=== PATIENT | male | born 1955 | race Caucasian/White ===

== ENCOUNTER 2019-01-21 08:53 | Emergency (ER) | payer BC ==
[2019-01-21 09:00] VITALS: BMI 25.0
--- NOTE | 2019-01-21 09:24 | PDOC ---
History of Present Illness - General Chief Complaint: Lightheaded Stated Complaint: ABD PAIN/ DIZZNESS Time Seen by Provider: 01/21/19 09:22 - History of Present Illness Initial Comments: 01/21/19 10:12 63 year old man with a history of L inguinal hernia repair 2 weeks ago who presents with weakness and nausea that started this AM. The patient has had constipation and has been on laxatives for the past weeks. He reports that he has had loose stools without changes in color. He denies chest pain, shortness of breath. He reports prior abdominal pain in the past 2 weeks but not currently. He has no other complaints aside from an ongoing cough ROS GENERAL/CONSTITUTIONAL: No fever or chills. + weakness. CARDIOVASCULAR: No chest pain or shortness of breath RESPIRATORY: No cough, wheezing, or hemoptysis. GASTROINTESTINAL: + nausea, No vomiting + diarrhea Want Ad Clerk constipation. GENITOURINARY: No dysuria, frequency, or change in urination. MUSCULOSKELETAL: No joint or muscle swelling or pain. No neck or back pain. SKIN: No rash PE GENERAL: Awake, alert, and fully oriented, in no acute distress HEAD: No signs of trauma, normocephalic, atraumatic EYES: EOMI, sclera anicteric, conjunctiva clear ENT: oropharynx clear without exudates. Moist mucosa NECK: Normal ROM, supple LUNGS: No distress, speaks full sentences, clear to auscultation bilaterally HEART: Regular rate and rhythm, normal S1 and S2, no murmurs, rubs or gallops, peripheral pulses normal and equal bilaterally. ABDOMEN: Soft, nontender, slightly hyperactive bowel sounds. No guarding, no rebound. No masses EXTREMITIES : Normal inspection, Normal range of motion, no edema. No clubbing or cyanosis. NEUROLOGICAL: Cranial nerves II through XII grossly intact. Normal speech, no focal sensorimotor deficits SKIN: Warm, Dry, normal turgor, no rashes or lesions noted MDM DDX including but not limited to: electrolyte abnormality r/o infectious r/o acs ED Course: cxr with no acute pathology as read by this administrative underwriter labs wnl will give another liter ns ekg: nsr at 60bpm, trop neg on reassessment, pt feels improved willl follow up with pcp tmrw or friday strict return precatuions provided recommended plnty of fluids and po intake po trial successful d/c with pcp f/u Ansley Thomas, PGY2 Emergency Medicine Past History - Past Medical History Allergies/Adverse Reactions: Allergies Allergy/AdvReac Type Severity Reaction Status Date / Time oxycodone Allergy Verified 01/21/19 09:00 Home Medications: Ambulatory Orders NK [No Known Home Medication] 01/21/19 - Psycho Social/Smoking Cessation Hx Smoking History: Never smoked Have you smoked in the past 12 months: No Information on smoking cessation initiated: No Hx Alcohol Use: No Drug/Substance Use Hx: No *Physical Exam - Vital Signs Last Vital Signs Temp Pulse Resp BP Pulse Ox 97.8 F 60 16 125/59 L 99 01/21/19 08:57 01/21/19 08:57 01/21/19 08:57 01/21/19 08:57 01/21/19 08:57 ED Treatment Course - LABORATORY CBC & Chemistry Diagram: 01/21/19 09:30 01/21/19 09:30 Discharge - Discharge Information Problems reviewed: Yes Clinical Impression/Diagnosis: Dehydration Condition: Stable Disposition: HOME - Admission No - Follow up/Referral Referrals: Antelmo Marks [Primary Care Provider] - - Patient Discharge Instructions Patient Printed Discharge Instructions: DI for Dehydration -- Adult, DI for Nausea -- Adult Additional Instructions: You were seen in the ER for weakness and nausea. Your labwork and imaging were unremarkable and you had improvement of symptoms after fluids You are advised to follow up with your Family Doctor within 1 week Use laxatives as prescribed and do not over dose yourself Drink plenty of fluids and maintain a regular diet. Return to the ED if you have worsening abdominal pain, nausea, vomiting, blood in the stool, fevers or any other concerning symptoms. - Post Discharge Activity
[2019-01-21] MEDS ORDERED: SODIUM CHLORIDE 1,000 ML IV SCH ×2 (09:30→10:45)
[2019-01-21 09:53] LABS: BASO % 0.5 % (0-2.0); EOS % 3.2 % (0-4.5); HEMATOCRIT 41.5 % (35.4-49); HEMOGLOBIN 14.6 GM/dL (11.7-16.9); LYMPH % 13.8 % (8-40); MCH 29.2 pg (25.7-33.7); MCHC 35.1 g/dl (32.0-35.9); MEAN CELL VOLUME 83.2 fl (80-96); MEAN PLT VOLUME 7.7 fl (7.5-11.1); MONO % 7.2 % (3.8-10.2); NEUT % 75.3 % (42.8-82.8); PLATELET COUNT 183 K/MM3 (134-434); RBC 4.99 M/mm3 (4.00-5.60); RDW 12.5 % (11.9-15.9); WHITE BLOOD COUNT 5.3 K/mm3 (4.0-10.0)
[2019-01-21] MEDS ORDERED: ONDANSETRON 4 MG/2 ML VIAL IVPUSH ONE (10:11)
[2019-01-21 10:12] LABS: INR 1.21 (0.83-1.09); PROTHROMBIN TIME (PATIENT) 14.3 SEC (9.7-13.0)
[2019-01-21 10:14] LABS: ACTIVATED PTT 32.8 SECONDS (25.2-36.5)
[2019-01-21] MEDS ORDERED: ONDANSETRON 4 MG/2 ML VIAL ONE (10:14)
[2019-01-21 10:23] LABS: ALBUMIN 3.8 g/dl (3.4-5.0); ALK PHOS 82 U/L (45-117); ANION GAP 6 MMOL/L (8-16); BILIRUBIN,TOTAL 0.5 mg/dL (0.2-1); BLOOD UREA NITROGEN 12.9 mg/dL (7-18); CHLORIDE 104 mmol/L (98-107); CO2 30 mmol/L (21-32); CREATININE 0.9 mg/dL (0.55-1.3); GLUCOSE,RANDOM 102 mg/dL (74-106); SGOT/AST 12 U/L (15-37); SGPT/ALT 18 U/L (13-61); SODIUM 139 mmol/L (136-145)
--- NOTE | 2019-01-21 10:56 | PDOC ---
Documentation entered by Katty Lomas SCRIBE, acting as scribe for Mario Bartlett MD. Mario Bartlett MD: This documentation has been prepared by the Cesilia baker Nirvannie, SCRIBE, under my direction and personally reviewed by me in its entirety. I confirm that the documentation accurately reflects all work, treatment, procedures, and medical decision making performed by me. Attending Attestation - Resident Resident Name: Ansley Thomas - ED Attending Attestation I have performed the following: I have examined & evaluated the patient, The case was reviewed & discussed with the resident, I agree w/resident's findings & plan, Exceptions are as noted - HPI HPI: 01/21/19 10:56 63 M with h/o recent L inguinal hernia surgery 2 weeks ago, presenting to ED with lightheadedness and diarrhea. Pt states that he has been having irregular bowel movements since his surgery. Reports initial constipation but has been taking milk of magnesia and colace daily, which has led to profuse watery diarrhea. Pt denies any abdominal pain. Denies N/V. Denies F/C. Now states he feels very weak and lightheaded. - Physicial Exam PE: 01/21/19 10:57 "GENERAL: Awake, alert, and fully oriented, in no acute distress. HEAD: No signs of trauma EYES: PERRLA, EOMI, sclera anicteric, conjunctiva clear ENT: Auricles normal inspection, hearing grossly normal, nares patent, oropharynx clear without exudates. Moist mucosa NECK: Nontender, no stepoffs, Normal ROM, supple, no lymphadenopathy, JVD, or masses LUNGS: Breath sounds equal, clear to auscultation bilaterally. No wheezes, and no crackles HEART: Regular rate and rhythm, normal S1 and S2, no murmurs, rubs or gallops ABDOMEN: + L inguinal surgical incision healing well, Soft, nontender, normoactive bowel sounds. No guarding, no rebound. No masses EXTREMITIES: Normal range of motion, no edema. No clubbing or cyanosis. No cords, erythema, or tenderness NEUROLOGICAL: Cranial nerves II through XII intact. 5/5 strength and sensation in all extremities, Normal speech, normal gait, normal cerebellar function SKIN: Warm, Dry, normal turgor, no rashes or lesions noted. - Medical Decision Making 01/21/19 10:58 63 M with lightheadedness and diarrhea. Likely dehydrated. Pt with benign abdominal exam, low suspicion for post-op infection or complication. - Labs - IVF Labs wnl Pt reassessed af ter fluids, now feels significantly better. Pt tolerating PO, ambulatory in ED with steady gait. Pt is well appearing, with normal vitals. Clinically stable for DC at this time. I discussed the physical exam findings, ancillary test results and final diagnoses with the patient. I answered all of the patient's questions. The patient was satisfied with the care received and felt comfortable with the discharge plan and treatment plan. The patient agrees to follow up with the primary care physician within 24-72 hours.
[2019-01-21 11:04] LABS: URINE APPEARANCE CLOUDY; URINE BILIRUBIN NEGATIVE (NEGATIVE); URINE COLOR YELLOW; URINE GLUCOSE (UA) NEGATIVE (NEGATIVE); URINE KETONE NEGATIVE (NEGATIVE); URINE LEUK ESTERASE NEGATIVE (NEGATIVE); URINE NITRITE NEGATIVE (NEGATIVE); URINE PROTEIN NEGATIVE (NEGATIVE); URINE UROBILINOGEN 0.2 mg/dL (0.2-1.0)
[2019-01-21 12:37] VITALS: BP 120/78; PULSE 64; TEMP 98.7
--- NOTE | 2019-01-22 13:53 | EKG ---
Test Reason : Blood Pressure : / mmHG Vent. Rate : 060 BPM Atrial Rate : 060 BPM P-R Int : 178 ms QRS Dur : 100 ms QT Int : 422 ms P-R-T Axes : 063 068 080 degrees QTc Int : 422 ms NORMAL SINUS RHYTHM NON-SPECIFIC INTRA-VENTRICULAR CONDUCTION DELAY WHEN COMPARED WITH ECG OF 13-OCT-2004 14:07, NO SIGNIFICANT CHANGE WAS FOUND Confirmed by MICHAEL BERRIOS MD ([id number]) on 01/22/2019 1:53:13 PM Referred By: Confirmed By:MICHAEL BERRIOS MD
== END 2019-01-21 12:30 | disposition home or self-care (01) ==
LOC: JER 08:53
PROC: 3E033GC Introduction of Other Therapeutic Substance into Peripheral Vein, Percutaneous Approach (ICD-10-PCS; principal; 2019-01-21)
DX: E86.0 Dehydration (principal); Z88.5 Allergy status to narcotic agent
CPT/HCPCS: 36415; 71045-TC-FY; 80053; 81003; 83880; 84484; 85025; 85610; 85730; 87086; 93005; 93010; 99284-25; J7030